=== PATIENT | male | born 1945 | race Caucasian/White ===

== ENCOUNTER 2017-04-20 17:20 | Observation (INO) | payer OTHER, MEDICARE ==
[~2017-04-20] VITALS: Ht 177.8 cm; Wt 72.6 kg
--- NOTE | ~2017-04-20 | EKG ---
[address] [address] ELECTROCARDIOGRAM REPORT Name: WHITAKERKRYSTAL Shashank Room #: 423-1 [facility] M.R.#: [id number] Admission: 04/20/17 Attend Phys: Steve Beauchamp MD Discharge: Date of : 41 Report #: [id number] THIS REPORT FOR: //name// [facility] ED Test Date: 2017-04-20 Test Time: 17:27:08 Pat Name: KRYSTAL WHITAKER Department: Room: [facility] Gender: M Packing Room Worker: YANA : 1945 Requested By: Marco A Locke Order Number: [id number] MD: Nathen Pelaez Measurements Intervals [place] Rate: 88 P: 47 PA: 134 QRS: -57 QRSD: 87 T: 34 QT: 380 QTc: 460 Interpretive Statements Sinus rhythm Probable left atrial enlargement Left anterior fascicular block Compared to ECG 02/24/2009 07:00:44 Left anterior fascicular block now present Electronically Signed On 04-21-2017 9:08:53 [employer] by Nathen Pelaez [email or web address] <ELECTRONICALLY SIGNED> By: Nathen Pelaez MD 04/21/17 [id number] 26 Nathen Pelaez MD /EPI
[2017-04-20 17:31] VITALS: BP 144/79
[2017-04-20 19:40] LABS: BASOPHILS 0.3 % (0.0-2.0); EOSINOPHILS 2.5 % (0.0-3.0); HEMATOCRIT 39.3 % (42.0-52.0); HEMOGLOBIN 13.1 gm/dL (14.0-18.0); LYMPHOCYTES 10.4 % (24.0-44.0); MCH 28.4 pg (26.0-34.0); MCHC 33.3 g/dL (28.0-37.0); MCV 85.4 fL (80.0-100.0); MONOCYTES 10.4 % (1.0-8.0); PLATELET COUNT 227 thou/uL (150-400); POLYS 76.4 % (36.0-66.0); RDW 15.3 % (10.5-14.5); WBC 9.1 thou/uL (4.0-11.0)
[2017-04-20 19:52] LABS: ANION GAP 9 mmol/L (7-16); BUN 25 mg/dL (7-18); CALCIUM 9.3 mg/dL (8.5-10.1); CHLORIDE 105 mmol/L (98-107); CO2 27 mmol/L (21-32); CREATININE 1.3 mg/dL (0.7-1.3); GLUCOSE 119 mg/dL (74-106); POTASSIUM 4.1 mmol/L (3.5-5.1); SODIUM 141 mmol/L (136-145)
[2017-04-20 19:53] LABS: APTT 27.5 Seconds (24.5-32.8); PROTIME 10.1 Seconds (9.3-11.4)
[2017-04-20 20:01] LABS: ALBUMIN 3.5 g/dL (3.4-5.0); MAGNESIUM 2.4 mg/dL (1.8-2.4); SGOT 26 U/L (15-37); SGPT 23 U/L (30-65); TOTAL BILIRUBIN 0.3 mg/dL (<0.1-1.0); TOTAL PROTEIN 7.9 g/dL (6.4-8.2); TROPONIN-I < 0.04 ng/mL (<0.06)
[2017-04-20] MEDS ORDERED: ZETIA10 MG PO (20:46)
[2017-04-20] MEDS ORDERED: PROTONIX40 M4 PO (20:46)
[2017-04-20] MEDS ORDERED: LIPITOR80 MG PO (20:46)
[2017-04-20] MEDS ORDERED: CLEOCIN HCL150 M1 PO (20:46)
[2017-04-20] MEDS ORDERED: MAALOX ADVANCE355 M1 PO (20:47)
[2017-04-20 21:20] VITALS: BP 152/70
[2017-04-20 21:25] VITALS: BP 134/56
[2017-04-21 03:00] LABS: HEMOGLOBIN 12.3 gm/dL (14.0-18.0); MCH 27.6 pg (26.0-34.0); MCHC 32.5 g/dL (28.0-37.0); MCV 85.1 fL (80.0-100.0); RBC 4.46 mil/uL (4.50-6.00); RDW 15.3 % (10.5-14.5); WBC 10.2 thou/uL (4.0-11.0)
[2017-04-21 03:06] LABS: CALCIUM 8.8 mg/dL (8.5-10.1); CREATININE 1.1 mg/dL (0.7-1.3); POTASSIUM 3.8 mmol/L (3.5-5.1)
[2017-04-21 03:37] VITALS: BP 145/74
[2017-04-21 07:57] VITALS: BP 145/75
[2017-04-21] MEDS ORDERED: CEFUROXIME500 MG PO (09:40)
[2017-04-21 10:46] VITALS: BP 145/75
[2017-04-21 10:52] VITALS: BP 145/75
== END 2017-04-21 11:48 | disposition home or self-care (01) ==
LOC: ER 17:20 → 4E 21:17
PROVIDERS: Emergency Medicine; Nurse Practitioner Family
DX: J18.1 Lobar pneumonia, unspecified organism (principal); R07.89 Other chest pain; I10 Essential (primary) hypertension; E78.5 Hyperlipidemia, unspecified; E78.00 Pure hypercholesterolemia, unspecified; K21.9 Gastro-esophageal reflux disease without esophagitis; R13.10 Dysphagia, unspecified; Z85.831 Personal history of malignant neoplasm of soft tissue; Z85.118 Personal history of other malignant neoplasm of bronchus and lung; Z85.028 Personal history of other malignant neoplasm of stomach; Z92.3 Personal history of irradiation; T81.89XA Other complications of procedures, not elsewhere classified, initial encounter; Y83.8 Other surgical procedures as the cause of abnormal reaction of the patient, or of later complication, without mention of misadventure at the time of the procedure